=== PATIENT | male | born 1975 | race African-American/Black ===

== ENCOUNTER 2018-06-09 20:30 | Outpatient (CLI) | payer MEDICARE, OTHER | END 2018-06-09 20:31 | disposition home or self-care (01) | LOC: SLEEPLAB 20:30 | DX: G47.33 Obstructive sleep apnea (adult) (pediatric) (principal); R53.83 Other fatigue; R06.83 Snoring; G47.00 Insomnia, unspecified; I10 Essential (primary) hypertension; G47.10 Hypersomnia, unspecified; I63.9 Cerebral infarction, unspecified; Z68.25 Body mass index [BMI] 25.0-25.9, adult | CPT/HCPCS: 95811 ==